=== PATIENT | female | born 1980 | race American Indian/Alaskan Native ===

== ENCOUNTER 2018-09-13 15:30 | Outpatient (CLI) | payer BC ==
--- NOTE | 2018-09-14 11:26 | Mammography Report ---
BILATERAL DIGITAL SCREENING MAMMOGRAM WITH CAD:09/13/18 16:00:00 CLINICAL: Baseline screening. FINDINGS: The breasts are heterogeneously dense, which may obscure small masses.An oval circumscribed 1.3 cm right central mass requires additional imaging. The breast is negative. IMPRESSION: Right central mass requiring further workup. BI-RADS CATEGORY: 0 -- Needs Additional Imaging RECOMMENDATION: Recall for a targeted right breast ultrasound. ACR BI-RADS MAMMOGRAPHIC CODES: 0 = Needs additional imaging evaluation; 1 = Negative; 2 = Benign; 3 = Probably benign; 4 = Suspicious; 5 = Malignant; 6 = Known biopsy-proven malignancy COMMENT: 1. Dense breast tissue, i.e., adenosis, fibrocystic changes, etc., may obscure an underlying neoplasm. 2. Approximately 10% of cancers are not detected with mammography. 3. A negative mammography report should not delay biopsy if a clinically suspicious mass is present.
== END 2018-09-13 15:31 | disposition home or self-care (01) ==
LOC: SPVWC 15:30
PROVIDERS: ATTEND Obstetrics & Gynecology
DX: Z12.31 Encounter for screening mammogram for malignant neoplasm of breast (principal)
CPT/HCPCS: 77067

== ENCOUNTER 2018-11-06 08:55 | Outpatient (CLI) | payer BC ==
--- NOTE | 2018-11-06 09:55 | Ultrasound Report ---
ULTRASOUND GUIDED CYST ASPIRATION RIGHT BREAST: 11/06/18 09:00:00 CLINICAL: Right breast mass or cyst at 1 o'clock 2 cm from the nipple. COMPARISON: 10/08/18 FINDINGS: The procedure was explained to the patient and informed consent was obtained. Ultrasound demonstrated the previously described oval lesion at 1 o'clock. However, it appears more like a cyst with fewer internal echoes on this exam. The skin was cleansed with Betadine and anesthetized with 1% lidocaine. A 20-gauge spinal needle was introduced into the cyst with ultrasound guidance. Approximately 2-cc of greenish brown fluidwas removed. The fluid was discarded. The patient tolerated the procedure well and there were no apparent complications. A post procedure mammogram showed resolution of the previously described circumscribed density. IMPRESSION: Uncomplicated aspiration of a benign cyst right breast.
--- NOTE | 2018-11-06 09:57 | Mammography Report ---
RIGHT DIGITAL DIAGNOSTIC MAMMOGRAM : 11/06/18 CLINICAL: Immediately status post cyst aspiration. COMPARISON:10/08/18 FINDINGS: The previous described circumscribed density at 1 o'clock has resolved. IMPRESSION: Resolution of mammographic mass with cyst aspiration. BI-RADS CATEGORY: 1 - - Negative COMMENT: Patient follow-up letters are generated by our [employer] application.
== END 2018-11-06 08:56 | disposition home or self-care (01) ==
LOC: SPVWC 08:55
PROVIDERS: ATTEND Obstetrics & Gynecology
DX: N60.01 Solitary cyst of right breast (principal); N63.12 Unspecified lump in the right breast, upper inner quadrant; R92.8 Other abnormal and inconclusive findings on diagnostic imaging of breast

== ENCOUNTER 2020-07-21 11:21 | Outpatient (CLI) | payer BC ==
--- NOTE | 2020-07-22 15:16 | Mammography Report ---
BILATERAL DIGITAL SCREENING MAMMOGRAM WITH CAD HISTORY: SCREENING MAMMOGRAM TECHNIQUE: Routine digital mammographic imaging performed. This examination was interpreted with doroteo harley benefit of Computer-aided Detection analysis. COMPARISON: 09/13/2018. FINDINGS: Breast Density: heterogeneously dense breast parenchymal pattern which somewhat lessens the sensitivi ty of the evaluation. Digital CC and MLO views demonstrate no mammographic evidence of malignancy. IMPRESSION: No mammographic evidence of malignancy. If the clinical examination remains stable, recommend bilate ral mammogram in approximately one year. BIRADS 1: Negative. FURTHER INFORMATION: According to the [employer], yearly mammograms are recommend ed starting at age 40 and continuing as long as a woman is in good health. Clinical Breast Exams shou ld be part of a periodic health exam-about every 3 years for women in their 20s and 30s and every yea r for women 40 and over. Breast self exam is an option for women starting in their 20s. Any breast ch ramirez noted on a breast self exam should be reported promptly to the patient's healthcare provider. Br east MRI is recommended for women with an approximately 20-25% or greater lifetime risk of breast can cer, including women with a strong family history of breast or ovarian cancer and women who have been treated for Hodgkin's disease. A negative Mammography report should not discourage follow up or biopsy of a clinically significant f inding and/or abnormality. Dense breast tissue may obscure small neoplasms. The patient will be entered into a reminder system with a target due date for the next screening mamm ogram. Signer Name: Sai Beckford MD Signed: 07/22/2020 3:12 PM Workstation Name: [id number]
== END 2020-07-21 11:22 | disposition home or self-care (01) ==
LOC: SPVWC 11:21
PROVIDERS: ATTEND Obstetrics & Gynecology
DX: Z12.31 Encounter for screening mammogram for malignant neoplasm of breast (principal)
CPT/HCPCS: 77067